=== PATIENT | female | born 1995 | race Caucasian/White ===

== ENCOUNTER → 2017-01-19 | Outpatient (CLI) | payer OTHER ==
[~2017-01-19] MED LIST: ADAL40KI INJ; BUDE0.09 PO; CETI10TA84 PO; CHOL100027 PO; MESA1.2T PO; MRC50 PO; MULT-506 PO; OMEP20TA PO; OPTIRAY 320 IV PRN; SERT-234 PO
--- NOTE | 2017-01-19 08:04 | DIAGNOSTIC IMAGING REPORT ---
CT SCAN OF THE ABDOMEN AND PELVIS WITH IV CONTRAST CLINICAL HISTORY: Rectal pain. Change in bowel habits. COMPARISON STUDY: No priors. TECHNIQUE: Following the IV administration of 119 cc of Optiray 320, CT scan of the abdomen and pelvis is performed from the lung bases to the proximal femora. Images are reviewed in the axial, sagittal, and coronal planes. IV contrast was administered without complication. Automated dose control exposure was utilized. CT DOSE: 557.82 mGy.cm FINDINGS: Lung bases: The heart is normal in size and without pericardial effusion. The lung bases are clear. Liver: The contrast-enhanced liver is normal in size, contour, and attenuation. There is no intrahepatic biliary ductal dilatation. The hepatic veins and portal veins are patent. Gallbladder: Unremarkable. Spleen: Normal in size and attenuation. Pancreas: Unremarkable. Adrenal glands: Unremarkable. Kidneys: The contrast enhanced kidneys are normal in size and without hydronephrosis. The kidneys enhance symmetrically. Abdominal vasculature: The abdominal aorta is normal in course and caliber. Bowel: The small bowel and colon are normal in course and caliber. A short segment of mild wall thickening is suggested in the sigmoid colon. There is no surrounding inflammatory change. The appendix is well-visualized and normal. The perianal soft tissues are normal as imaged. There is no evidence of perianal abscess. Peritoneum: There is no intraperitoneal free air or abdominal ascites. There is a small fat-containing umbilical hernia. Lymphadenopathy: None. Pelvic viscera: The bladder and uterus are normal as visualized. Small ovarian follicles are observed. A 9 mm dermoid is noted in the right ovary, best seen on image #327. Skeletal structures: No lytic or blastic lesions are seen. IMPRESSION: 1. There is a questionable short segment of mild wall thickening involving the sigmoid colon. No pericolonic inflammation is identified. The remainder of the colon is normal in appearance. Correlate clinically for evidence of a mild nonspecific colitis. 2. The perianal soft tissues are normal. 3. A 9 mm dermoid is incidentally noted in the right ovary. Electronically signed by: Sidney Gama M.D. 01/19/2017 8:02 AM Dictated Date/Time: 01/19/2017 7:56 AM
== END | disposition home or self-care (01) ==
LOC: C.CTS 05:41
PROVIDERS: ATTEND Internal Medicine
DX: K61.1 Rectal abscess (principal); K62.89 Other specified diseases of anus and rectum; R19.5 Other fecal abnormalities; K52.9 Noninfective gastroenteritis and colitis, unspecified

== ENCOUNTER → 2017-02-11 | Day surgery (SDC) | payer OTHER ==
[2017-02-01 11:40] VITALS: Ht 160 cm; Wt 77.3 kg
[~2017-02-11] VITALS: Ht 160 cm; Wt 77.3 kg
[~2017-02-11] MED LIST changes: +LIDOCAINE HCL 2% 2 ML VIAL (20MG/ML) ONE; +MIDAZOLAM HCL 1 MG/ML 2ML VIAL ONE; +ONDANSETRON INJ 2 MG/ML 2 ML VIAL ONE; -OPTIRAY 320 IV PRN; +PROPOFOL IV EMULSION 10 MG/ML 20 ML VIAL IV ONE
[2017-02-11 12:52] LABS: PREG INTERNAL NEGATIVE QC NEG CLEAR BACKGROUND; PREG INTERNAL POSITIVE QC POS CONTROL LINE
--- NOTE | 2017-02-11 13:15 | GI REPORT ---
Procedure Date: 02/11/2017 12:06 PM Procedure: Colonoscopy Indications: Follow-up of Crohn's disease Medicines: Monitored Anesthesia Care Complications: No immediate complications. Estimated Blood Loss: Estimated blood loss: none. Procedure: Pre-Anesthesia Assessment: - Prior to the procedure, a History and Physical was performed, and patient medications and allergies were reviewed. The patient's tolerance of previous anesthesia was also reviewed. The risks and benefits of the procedure and the sedation options and risks were discussed with the patient. All questions were answered, and informed consent was obtained. Prior Anticoagulants: The patient has taken no previous anticoagulant or antiplatelet agents. ASA Grade Assessment: II - A patient with mild systemic disease. After reviewing the risks and benefits, the patient was deemed in satisfactory condition to undergo the procedure. After I obtained informed consent, the scope was passed under direct vision. Throughout the procedure, the patient's blood pressure, pulse, and oxygen saturations were monitored continuously. The Scope was introduced through the anus and advanced to the terminal ileum. The colonoscopy was performed without difficulty. The patient tolerated the procedure well. The quality of the bowel preparation was good. The terminal ileum, the appendiceal orifice and the rectum were photographed. Findings: The terminal ileum appeared normal. Inflammation characterized by erythema and scarring was found. The anus and the rectum were spared. This was moderate in severity. Several random biopsies were obtained with cold forceps for histology in the entire colon. Impression: - The examined portion of the ileum was normal. - Inflammation was found. - Several random biopsies were obtained in the entire colon. Recommendation: - Resume previous diet. - Continue present medications. - Repeat colonoscopy for surveillance based on pathology results. - Return to GI office as previously scheduled. Anil Jorgensen DO 02/11/2017 1:14:43 PM This report has been signed electronically. Note Initiated On: 02/11/2017 12:06 PM I attest to the content of the Intraoperative Record and orders documented therein, exceptions below
--- NOTE | 2017-02-11 13:16 | Endo History and Physical ---
History & Physical Date of Service: Feb 11, 2017. Chief Complaint: Crohn's,diarrhea and rectal discomfort Referring Physician: [facility] History of Present Illness 21 yo CF who presents for colonoscopy secondary to Crohn's Disease and diarrhea. Past Surgical History Hx Cardiac Surgery: No Hx Internal Defibrillator: No Hx Pacemaker: No Hx Abdominal Surgery: No Hx of Implantable Prosthesis: No Hx Post-Op Nausea and Vomiting: No Hx Cancer Surgery: No Hx Thoracic Surgery: No Hx Orthopedic: No Hx Urinary Tract Surgery: No Family History None Social History Smoking Status: Never Smoker Hx Substance Use: No Hx Alcohol Use: No Allergies Coded Allergies: Wilkin (Verified Allergy, Severe, HIVES AND ANAPHYLAXIS, 02/01/17) Nickel (Verified Allergy, Unknown, LOCAL SWELLING, 02/01/17) Penicillins (Verified Allergy, Unknown, HIVES AND RASH, 02/01/17) Current Medications Reported Home Medications Medications Dose Route/Sig Max Daily Dose Days Date Category Lialda (Mesalamine) 1.2 Gm Tab 1 Tab PO BID 02/01/17 Reported Vitamin D 1000 Unit (Cholecalciferol) 1,000 Unit Cap 1,000 Inter.unit PO QAM 02/01/17 Reported Multivitamin (Multivitamins) Tab 1 Tab PO QAM 02/01/17 Reported Humira Pen (Adalimumab) 40 Mg/0.8 Ml Kit 40 Mg INJ [id number] 02/01/17 Reported Omeprazole 20 Mg Tab 1 Tab PO QAM 02/01/17 Reported Zyrtec (Cetirizine HCl) 10 Mg Tab 10 Mg PO QAM 02/01/17 Reported Mercaptopurine 50 Mg Tab 1.5 Tab PO QAM 02/01/17 Reported Budesonide 3 Mg Cap 3 Cap PO QAM 02/01/17 Reported Zoloft (Sertraline HCl) 100 Mg Tab 200 Mg PO QAM 02/01/17 Reported Vital Signs Weight (Kilograms): 77.27 Height (Feet): 5 Height (Inches): 3 Date Time Temp Pulse Resp B/P Pulse Ox O2 Delivery O2 Flow Rate FiO2 02/11/17 11:53 37.1 95 20 142/70 98 Room Air Physical Exam General Appearance: WD/WN, no apparent distress Respiratory/Chest: Auscultation: breath sounds normal Cardiovascular: Heart Auscultation: RRR Abdomen: Bowel Sounds: normal Inspection & Palpation: soft, non-distended, no tenderness, guarding & rebound Assessment and Plan Assessment: 21 yo CF who presents for colonoscopy secondary to Crohn's Disease and diarrhea. Plan: Proceed with colonoscopy.
--- NOTE | 2017-02-11 13:17 | Discharge Instructions ---
Endoscopy Patient Instructions Date / Procedure(s) Performed Feb 11, 2017. Colonoscopy Allergy Information Coded Allergies: Baraga (Verified Allergy, Severe, HIVES AND ANAPHYLAXIS, 02/01/17) Nickel (Verified Allergy, Unknown, LOCAL SWELLING, 02/01/17) Penicillins (Verified Allergy, Unknown, HIVES AND RASH, 02/01/17) Discharge Date / Findings Feb 11, 2017. Crohn's Disease involving the ano-rectal region Random colon biopsies Medication Instructions OK to resume all medications today as prescribed Reported Home Medications Medications Dose Route/Sig Max Daily Dose Days Date Category Lialda (Mesalamine) 1.2 Gm Tab 1 Tab PO BID 02/01/17 Reported Vitamin D 1000 Unit (Cholecalciferol) 1,000 Unit Cap 1,000 Inter.unit PO QAM 02/01/17 Reported Multivitamin (Multivitamins) Tab 1 Tab PO QAM 02/01/17 Reported Humira Pen (Adalimumab) 40 Mg/0.8 Ml Kit 40 Mg INJ [id number] 02/01/17 Reported Omeprazole 20 Mg Tab 1 Tab PO QAM 02/01/17 Reported Zyrtec (Cetirizine HCl) 10 Mg Tab 10 Mg PO QAM 02/01/17 Reported Mercaptopurine 50 Mg Tab 1.5 Tab PO QAM 02/01/17 Reported Budesonide 3 Mg Cap 3 Cap PO QAM 02/01/17 Reported Zoloft (Sertraline HCl) 100 Mg Tab 200 Mg PO QAM 02/01/17 Reported Provider Instructions Activity Restrictions - No exercising or heavy lifting for 24 hours. - Do not drink alcohol the day of the procedure. - Do not drive a car or operate machinery until the day after the procedure. - Do not make any important decisions or sign important papers in 24 hours after the procedure. Following Day: - Return to full activity which may include returning to work/school. Diet Start your diet with liquids and light foods (jello, soup, juice, toast). Then eat your usual diet if not nauseated. Treatment For Common After Affects For mild abdominal pain, bloating, or excessive gas: - Rest - Eat lightly - Lie on right side Follow-Up Information Follow-up with [facility] as scheduled Anesthesia Information What You Should Know You have had a procedure that required some medicine to reduce anxiety and discomfort. This treatment is called moderate sedation. After receiving the treatment, you may be sleepy, but you will be able to breathe on your own. The effects of the treatment may last for several hours. Follow these instructions along with Activity/Diet recommendations noted above: * Do NOT do anything where dizziness or clumsiness would be dangerous. * Rest quietly at home today, then you can be up and about tomorrow. * Have a responsible person stay with you the rest of today. * You may have had an I.V. today. If so, you may take the dressing off later today. Recommendations Call your doctor if: * Trouble breathing * Continuous vomiting for more than 24 hours * Temperature above 101 degrees * Severe abdominal pain or bloating * Pain not relieved by pain medicine ordered * There is increased drainage or redness from any incision * A large amount of rectal bleeding greater than 2-3 tablespoons. (If you had a polyp/s removed or have hemorrhoids, a small amount of blood - from the rectum is to be expected.) * You have any unanswered questions or concerns. IN THE EVENT OF A SERIOUS EMERGENCY, GO TO THE NEAREST EMERGENCY ROOM Your discharge instructions were prepared by provider Anil Jorgensen. Patient Instructions Signature Page Laurel Nunez Patient (or Guardian) Signature/Date: I have read and understand the instructions given to me by my caregivers. Caregiver/RN/Doctor Signature/Date: The above-named patient and/or guardian has received patient instructions on this date. + Original Patient Signature Page (only) stays with chart. Please make copy for patient.
[2017-02-11 13:43] VITALS: BP 105/71; PULSE 83; O2SAT 97
--- NOTE | 2017-02-11 14:08 | Anesthesiology Progress Note ---
Anesthesia Post Op Note Date & Time Feb 11, 2017 at 14:08 Vital Signs Pain Intensity: 0 Vital Signs Past 12 Hours Date Time Temp Pulse Resp B/P Pulse Ox O2 Delivery O2 Flow Rate FiO2 02/11/17 13:43 83 20 105/71 97 Room Air 02/11/17 13:28 72 20 118/77 98 Room Air 02/11/17 13:13 94 20 135/61 98 Room Air 02/11/17 11:53 37.1 95 20 142/70 98 Room Air Notes Mental Status: alert / awake / arousable, participated in evaluation Pt Amnestic to Procedure: Yes Nausea / Vomiting: adequately controlled Pain: adequately controlled Airway Patency, RR, SpO2: stable & adequate BP & HR: stable & adequate Hydration State: stable & adequate Anesthetic Complications: no major complications apparent
== END | disposition home or self-care (01) ==
LOC: C.GI 11:30
PROVIDERS: ATTEND Internal Medicine
DX: K50.90 Crohn's disease, unspecified, without complications (principal); K52.9 Noninfective gastroenteritis and colitis, unspecified; F32.9 Major depressive disorder, single episode, unspecified; Z88.0 Allergy status to penicillin; Z91.018 Allergy to other foods

== ENCOUNTER → 2017-03-01 | Outpatient (CLI) | payer OTHER ==
[~2017-03-01] MED LIST changes: -LIDOCAINE HCL 2% 2 ML VIAL (20MG/ML) ONE; -MIDAZOLAM HCL 1 MG/ML 2ML VIAL ONE; -ONDANSETRON INJ 2 MG/ML 2 ML VIAL ONE; -PROPOFOL IV EMULSION 10 MG/ML 20 ML VIAL IV ONE
[2017-03-01 17:41] LABS: BASO % 0.3 %; BASO ABS # 0.03 K/uL (0-0.2); COMPLETE YES; EOS % 0.3 %; HEMATOCRIT 37.4 % (37-47); IG% 0.2 %; LYMPH % 19.2 %; LYMPH ABS # 1.65 K/uL (1.2-3.4); MEAN CELL VOLUME 91.9 fL (80-100); MEAN CORPUSCULAR HEMOGLOBIN 33.4 pg (25-34); MEAN CORPUSCULAR HGB CONC 36.4 g/dl (32-36); MEAN PLATELET VOLUME 10.1 fL (7.4-10.4); PLATELET COUNT 303 K/uL (130-400); RED BLOOD COUNT 4.07 M/uL (4.2-5.4)
[2017-03-01 18:11] LABS: ALT/SGPT 18 U/L (12-78); AST/SGOT 13 U/L (15-37); BLOOD UREA NITROGEN 12 mg/dl (7-18); BUN/CREATININE RATIO 16.5 (10-20); C-REACTIVE PROTEIN 0.62 mg/dl (0-0.29); CARBON DIOXIDE 26 mmol/L (21-32); CHLORIDE 106 mmol/L (98-107); CREATININE 0.71 mg/dl (0.60-1.20); GLUCOSE 74 mg/dl (70-99); POTASSIUM 3.4 mmol/L (3.5-5.1); SODIUM 141 mmol/L (136-145)
[2017-03-01 18:13] LABS: ALB/GLOB RATIO 0.9 (0.9-2); ALKALINE PHOSPHATASE 74 U/L (45-117)
== END | disposition home or self-care (01) ==
LOC: C.LAB1850 16:13
PROVIDERS: ATTEND Internal Medicine
DX: K50.90 Crohn's disease, unspecified, without complications (principal)

== ENCOUNTER → 2018-01-13 | Outpatient (CLI) | payer OTHER ==
[~2018-01-13] MED LIST changes: +GADAVIST IV PRN
--- NOTE | 2018-01-13 09:19 | DIAGNOSTIC IMAGING REPORT ---
MRI OF THE PELVIS COMBO CLINICAL HISTORY: Crohn's disease. Rectal discomfort. COMPARISON STUDY: Pelvic CT dated 01/19/2017. TECHNIQUE: MRI of the pelvis is performed utilizing various T1 and T2-weighted sequences in the axial, sagittal, and coronal planes. Contrast-enhanced sequences are acquired following the IV administration of 8 cc of Gadavist. FINDINGS: There is a perianal fistula identified. This arises at the 6:00 position and extends along the right median gluteal crease. This is best seen on axial T2 fat-sat image 30 of 43. The fistulous tract closely abuts the dermal surface, measures up to 5 mm in thickness, and extends at least 2.5 cm in length. Fluid is present within the fistulous tract. There is no significant inflammatory change in the surrounding fat. No fluid collection is seen to indicate perianal abscess. The rectum and visualized bowel loops in the pelvis are normal in appearance. The bladder, uterus, and ovaries are normal in appearance. There is no free fluid in the cul-de-sac. No pelvic sidewall or inguinal lymphadenopathy is seen. The iliac vessels are widely patent. The bony pelvis is normal in appearance. No sacroiliac joint abnormality is identified. The pelvic musculature is normal and symmetric. An 11 mm presacral nodule on image 7 is unchanged and of indeterminant significance. IMPRESSION: 1. 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 2. There is no organized fluid collection to indicate perianal abscess. 3. An 11 mm low suspicion presacral nodule is unchanged from previous. Dictated: 01/13/2018 8:59 AM Transcribed: 01/13/2018 9:19 AM [place] Electronically signed by: Sidney Gama M.D. 01/13/2018 9:31 AM Dictated Date/Time: 01/13/2018 8:59 AM
== END | disposition home or self-care (01) ==
LOC: C.MRI 07:22
PROVIDERS: ATTEND Internal Medicine
DX: K60.3 Anal fistula (principal)